=== PATIENT | female | born 1975 | race Caucasian/White ===

== ENCOUNTER 2017-07-01 12:38 | Day surgery (SDC) | payer MEDICAID ==
[~2017-07-01] VITALS: Ht 175.3 cm; Wt 160.9 kg
[~2017-07-01 12:38] MED LIST: NAPR-56 PO
[2017-07-01 12:45] VITALS: BP 143/105
[2017-07-01] MEDS ORDERED: fentaNYL/PF 50MCG/1 ML 2ML syringe ONE (12:48)
[2017-07-01] MEDS ORDERED: LIDOcaine Viscous 15ml cup ONE (12:49)
[2017-07-01] MEDS ORDERED: MIDAZolam 1mg/ml 10ml vial ONE (12:49)
[2017-07-01] MEDS ORDERED: VENL75CA55 PO (12:59)
[2017-07-01] MEDS ORDERED: NAPR-1154 PO (12:59)
[2017-07-01] MEDS ORDERED: HYDR-565 PO (12:59)
[2017-07-01] MEDS ORDERED: CLON-527 PO (12:59)
[2017-07-01 13:35] VITALS: BP 135/75
[2017-07-01 13:45] VITALS: BP 147/84
[2017-07-01 13:55] VITALS: BP 148/75
[2017-07-01 14:05] VITALS: BP 138/94
== END 2017-07-01 14:15 | disposition home or self-care (01) ==
LOC: GI LAB 12:38
PROVIDERS: ATTEND Internal Medicine Gastroenterology
DX: E66.01 Morbid (severe) obesity due to excess calories (principal); K20.9 Esophagitis, unspecified; K29.70 Gastritis, unspecified, without bleeding; Z68.43 Body mass index [BMI] 50.0-59.9, adult; Z79.899 Other long term (current) drug therapy
CPT/HCPCS: 43239; 99152; J2250; J3010; J7030; A4620; G0500

== ENCOUNTER 2018-06-18 15:25 | Emergency (ER) | payer MEDICAID ==
[~2018-06-18] VITALS: Ht 172.7 cm; Wt 169.6 kg
[~2018-06-18 15:25] MED LIST changes: +CLON-527 PO; +HYDR-4353 PO; +NAPR-1154 PO; -NAPR-56 PO; +VENL75CA55 PO
[2018-06-18 16:00] VITALS: BP 155/102
[2018-06-18 17:00] LABS: BASOPHILS # (AUTO) 0.1 X10'3 (0-0.2); BASOPHILS % (AUTO) 0.5 % (0-1); EOSINOPHILS # (AUTO) 0.2 X10'3 (0-0.9); HEMATOCRIT 34.6 % (35.0-45.0); HEMOGLOBIN 10.7 g/dl (12.0-16.0); LYMPHOCYTES # (AUTO) 2.7 X10'3 (1.1-4.8); LYMPHOCYTES % (AUTO) 26.1 % (21-51); MEAN CORPUSCULAR HEMOGLOBIN 21.3 PG (27.0-31.0); MEAN CORPUSCULAR VOLUME 68.8 FL (78-98); MEAN PLATELET VOLUME 8.7 FL (7.4-10.4); MONOCYTES # (AUTO) 0.7 X10'3 (0-0.9); MONOCYTES % (AUTO) 6.9 % (2-12); NEUTROPHILS # (AUTO) 6.7 X10'3 (1.8-7.7); NEUTROPHILS % (AUTO) 64.5 % (42-75); PLATELET COUNT 261 X10'3 (140-440); RED BLOOD COUNT 5.03 X10'6 (4.20-5.60); RED CELL DISTRIBUTION WIDTH 15.6 % (11.5-14.5); WHITE BLOOD COUNT 10.4 X10'3 (4.5-11.0)
[2018-06-18 17:15] LABS: ALANINE AMINOTRANSFERASE 26 U/L (12-78); ALBUMIN 3.6 G/DL (3.4-5.0); ALBUMIN/GLOBULIN RATIO 0.8 (1.1-1.5); ALKALINE PHOSPHATASE 91 IU/L (46-116); ANION GAP 12 (8-16); ASPARTATE AMINO TRANSFERASE 17 U/L (10-37); BILIRUBIN,TOTAL 0.3 MG/DL (0.1-1.0); BLOOD UREA NITROGEN 12 MG/DL (7-18); BUN/CREATININE RATIO 13.5 (6.6-38.0); CALCIUM 8.8 MG/DL (8.5-10.1); CHLORIDE 101 MMOL/L (99-107); CREATININE 0.89 MG/DL (0.40-0.90); GLUCOSE 117 MG/DL (70-104); POTASSIUM 3.9 MMOL/L (3.5-5.1); SODIUM 138 MMOL/L (135-145); TOTAL CARBON DIOXIDE 25.3 MMOL/L (24-32); TOTAL PROTEIN 8.1 G/DL (6.4-8.2); eGFR 70 ML/MIN
[2018-06-18 17:46] LABS: ANISOCYTOSIS 1+; MICROCYTOSIS 1+; PLATELET ESTIMATE NORMAL
[2018-06-18 17:48] LABS: ELLIPTOCYTES FEW; POLYCHROMASIA FEW; SCHISTOCYTES FEW
[2018-06-18 17:49] LABS: TEAR DROP CELLS FEW
[2018-06-18] MEDS ORDERED: BENZ-16 PO (17:59)
[2018-06-18] MEDS ORDERED: GUAI120L55 PO (17:59)
--- NOTE | 2018-06-19 21:32 | NUR ---
PT CALLED AND INSTRUCTED TO HAVE A F/U CXR IN 1 WEEK DUE TO PULMONARY NODULE ON CXR.
[2018-06-22] MEDS ORDERED: OMEP20CA10 PO (05:41)
[2018-06-22] MEDS ORDERED: GABA-532 PO (05:41)
[2018-06-22] MEDS ORDERED: BUSP5TAB3 PO (05:41)
[2018-06-22] MEDS ORDERED: LEVO500T89 PO (05:41)
== END 2018-06-18 18:28 | disposition home or self-care (01) ==
LOC: ER 15:25
DX: J06.9 Acute upper respiratory infection, unspecified (principal); G89.29 Other chronic pain; Z79.899 Other long term (current) drug therapy
CPT/HCPCS: 36415; 71046; 80053; 83605; 85025; 87040; 87502; 87503; 93005; 99284

== ENCOUNTER 2018-06-22 00:49 | Inpatient (IN) | payer MEDICAID | END 2018-06-25 14:10 | disposition home or self-care (01) | LOC: ER 00:49 → ED HOLD 03:39 → PCU 3S 04:30 ==

== ENCOUNTER 2019-01-27 14:46 | Outpatient (CLI) | payer MEDICAID ==
[~2019-01-27 14:46] MED LIST changes: -CLON-527 PO; -HYDR-4353 PO; +LEVO500T89 PO; -NAPR-1154 PO; +OMEP20CA11 PO; +RIVA15TA PO; -VENL75CA55 PO
== END 2019-01-27 23:59 | disposition home or self-care (01) ==
LOC: PRE-OP 14:46 → EDSTATUS 01-29 12:00
PROVIDERS: ATTEND Obstetrics & Gynecology Obstetrics
DX: Z01.818 Encounter for other preprocedural examination (principal); D25.9 Leiomyoma of uterus, unspecified; I25.2 Old myocardial infarction
CPT/HCPCS: 71046; 93005

== ENCOUNTER 2019-02-13 08:33 | Day surgery (SDC) | payer MEDICAID ==
[2019-02-13] VITALS (9 sets, daily range): BP systolic 136–172; BP diastolic 52–99
[~2019-02-13] VITALS: Ht 175.3 cm; Wt 129.0 kg
[2019-02-13] MEDS ORDERED: diphenhydrAMINE 25mg capsule PO PRN (09:25)
[2019-02-13] MEDS ORDERED: normal saline 1,000 ML IV SCH (09:25)
[2019-02-13] MEDS ORDERED: APIX5TAB3 PO (10:24)
[2019-02-13 10:56] LABS: ALBUMIN 3.8 G/DL (3.4-5.0); ANION GAP 9 (8-16); BLOOD UREA NITROGEN 10 MG/DL (7-18); BUN/CREATININE RATIO 12.5 (6.6-38.0); CALCIUM 9.2 MG/DL (8.5-10.1); CHLORIDE 105 MMOL/L (99-107); GLUCOSE 92 MG/DL (70-104); POTASSIUM 4.2 MMOL/L (3.5-5.1); SODIUM 141 MMOL/L (135-145); TOTAL CARBON DIOXIDE 26.7 MMOL/L (24-32); eGFR 78 ML/MIN
[2019-02-13] MEDS ORDERED: midazolam 2 mg/2 ml injection ONE ×4 (10:56→11:43)
[2019-02-13] MEDS ORDERED: LIDOcaine 1% (10mg/ml)w/preservative injection 20ml MDV ONE (10:57)
[2019-02-13] MEDS ORDERED: iohexol 350MG/ML 100ml bottle IV ONE (10:57)
[2019-02-13] MEDS ORDERED: iohexol 350 MG/ML 50ML vial IV ONE (10:57)
[2019-02-13] MEDS ORDERED: fentaNYL/PF 50MCG/1 ML 2ML syringe ONE ×2 (10:57→11:35)
[2019-02-13 11:21] LABS: BASOPHILS # (AUTO) 0.1 X10'3 (0-0.2); BASOPHILS % (AUTO) 0.5 % (0-1); EOSINOPHILS # (AUTO) 0.1 X10'3 (0-0.9); EOSINOPHILS % (AUTO) 1.1 % (0-6); HEMATOCRIT 31.3 % (35.0-45.0); HEMOGLOBIN 9.3 g/dl (12.0-16.0); LYMPHOCYTES % (AUTO) 27.9 % (21-51); MEAN CORPUSCULAR HEMOGLOBIN 19.2 PG (27.0-31.0); MEAN CORPUSCULAR HGB CONC 29.8 g/dL (33.0-36.5); MEAN CORPUSCULAR VOLUME 64.4 FL (78-98); MEAN PLATELET VOLUME 8.4 FL (7.4-10.4); MONOCYTES # (AUTO) 0.9 X10'3 (0-0.9); NEUTROPHILS # (AUTO) 6.7 X10'3 (1.8-7.7); NEUTROPHILS % (AUTO) 62.5 % (42-75); PLATELET COUNT 331 X10'3 (140-440); RED BLOOD COUNT 4.86 X10'6 (4.20-5.60); RED CELL DISTRIBUTION WIDTH 18.1 % (11.5-14.5); WHITE BLOOD COUNT 10.7 X10'3 (4.5-11.0)
[2019-02-13] MEDS ORDERED: nitroGLYCERIN-Tridil 50MG/D5W 250 ML IV ONE (11:30)
[2019-02-13] MEDS ORDERED: heparin 1,000unit/ml 10ml vial 10 ML ONE (11:30)
[2019-02-13] MEDS ORDERED: verapamil 2.5 mg/ml inj IV ONE (11:30)
[2019-02-13] MEDS ORDERED: normal saline 1000ml 1,000 ML IV SCH (12:35)
[2019-02-13 13:06] LABS: MICROCYTOSIS 2+; PLATELET ESTIMATE NORMAL
[2019-02-13 13:07] LABS: ANISOCYTOSIS 2+; HYPOCHROMASIA 1+
[2019-02-13 13:08] LABS: SCHISTOCYTES FEW
[2019-02-14] MEDS ORDERED: furosemide 40mg/4ml inj ONE (11:16)
== END 2019-02-13 15:30 | disposition home or self-care (01) ==
LOC: SSTAY O 08:33
PROVIDERS: ATTEND Internal Medicine Cardiovascular Disease
DX: I25.10 Atherosclerotic heart disease of native coronary artery without angina pectoris (principal); F41.9 Anxiety disorder, unspecified; F32.9 Major depressive disorder, single episode, unspecified; M19.90 Unspecified osteoarthritis, unspecified site; D50.9 Iron deficiency anemia, unspecified; Z87.11 Personal history of peptic ulcer disease; E66.01 Morbid (severe) obesity due to excess calories; Z68.41 Body mass index [BMI] 40.0-44.9, adult; Z98.890 Other specified postprocedural states; Z79.899 Other long term (current) drug therapy; Z86.711 Personal history of pulmonary embolism; Z82.49 Family history of ischemic heart disease and other diseases of the circulatory system
CPT/HCPCS: 36415; 80048; 83735; 85025; 85610; 93005; 93458; 99152; 99153; C1769; C1894; J1644; J2001; J2250; J3010; J7030; Q0163; Q9967; A4620; A5120; J1940; J3490

== ENCOUNTER 2019-02-14 07:58 | Inpatient (IN) | payer MEDICAID ==
[~2019-02-14] VITALS: Ht 167.6 cm; Wt 181.8 kg
[2019-02-14] VITALS (24 sets, daily range): BP systolic 73–114; BP diastolic 41–67
[~2019-02-14 07:58] MED LIST changes: +APIX5TAB3 PO
[2019-02-14] MEDS ORDERED: NORepinephrine bitartrate 8 MG in NS 250 ML BAG (32 mcg/ml) IV ONE (08:00)
[2019-02-14] MEDS ORDERED: atropine 0.1 mg/ml 5ml syringe ONE (08:00)
[2019-02-14] MEDS ORDERED: heparin, porcine-25,000 units/D5-250ml premix IV ONE (08:00)
[2019-02-14] MEDS ORDERED: sodium bicarbonate (8.4%) 1 mEq/ml syringe ONE ×2 (08:00)
[2019-02-14] MEDS ORDERED: heparin 10,000 units/1 ML INJ ONE (08:00)
[2019-02-14] MEDS ORDERED: epiNEPHrine 0.1mg/ml 10ml syringe ONE ×2 (08:00)
[2019-02-14] MEDS ORDERED: calcium chloride 100 MG/1 ML inj IV ONE (08:00)
[2019-02-14] MEDS ORDERED: atropine 0.1mg/ml 10ml syringe ONE (08:00)
[2019-02-14] MEDS ORDERED: nitroGLYCERIN in D5W 50mg/250ml (Tridil) infusion IV ONE (08:00)
[2019-02-14] MEDS ORDERED: etomidate 2mg/ml inj. ONE (08:00)
[2019-02-14] MEDS ORDERED: heparin 10,000 units/1 ML INJ IV ONE ×3 (08:05→13:00)
[2019-02-14] MEDS ORDERED: heparin 10,000 units/1 ML INJ IV PRN ×3 (08:05→13:00)
[2019-02-14] MEDS ORDERED: heparin 25,000 UNIT/250ml bag 250 ML IV SCH ×3 (08:05→12:59)
[2019-02-14] MEDS ORDERED: nitroGLYCERIN-Tridil 50MG/D5W 250 ML IV PRN (08:05)
[2019-02-14] MEDS ORDERED: normal saline 1000ML IV soln IVB ONE (08:20)
[2019-02-14] MEDS ORDERED: iohexol 350MG/ML 100ml bottle IV ONE ×3 (08:27→10:01)
[2019-02-14 08:31] LABS: BASOPHILS # (AUTO) 0.1 X10'3 (0-0.2); BASOPHILS % (AUTO) 0.7 % (0-1); EOSINOPHILS # (AUTO) 0.3 X10'3 (0-0.9); EOSINOPHILS % (AUTO) 2.1 % (0-6); HEMATOCRIT 30.5 % (35.0-45.0); LYMPHOCYTES # (AUTO) 6.5 X10'3 (1.1-4.8); LYMPHOCYTES % (AUTO) 50.5 % (21-51); MEAN CORPUSCULAR HGB CONC 29.5 g/dL (33.0-36.5); MEAN CORPUSCULAR VOLUME 64.6 FL (78-98); MEAN PLATELET VOLUME 7.9 FL (7.4-10.4); MONOCYTES # (AUTO) 1.1 X10'3 (0-0.9); MONOCYTES % (AUTO) 8.3 % (2-12); NEUTROPHILS % (AUTO) 38.4 % (42-75); PLATELET COUNT 334 X10'3 (140-440); RED BLOOD COUNT 4.73 X10'6 (4.20-5.60); RED CELL DISTRIBUTION WIDTH 18.3 % (11.5-14.5)
[2019-02-14 08:41] LABS: ALANINE AMINOTRANSFERASE 25 U/L (12-78); ALBUMIN 3.4 G/DL (3.4-5.0); ALBUMIN/GLOBULIN RATIO 0.8 (1.1-1.5); ALKALINE PHOSPHATASE 73 IU/L (46-116); ANION GAP 11 (8-16); ASPARTATE AMINO TRANSFERASE 12 U/L (10-37); BILIRUBIN,TOTAL 0.4 MG/DL (0.1-1.0); BLOOD UREA NITROGEN 11 MG/DL (7-18); BUN/CREATININE RATIO 10.6 (6.6-38.0); CALCIUM 8.8 MG/DL (8.5-10.1); CHLORIDE 104 MMOL/L (99-107); CREATININE 1.04 MG/DL (0.40-0.90); D-DIMER 1.09 MG/L FEU (0-0.50); GLUCOSE 183 MG/DL (70-104); PARTIAL THROMBOPLASTIN TIME 24 SECONDS (22-32); POTASSIUM 3.5 MMOL/L (3.5-5.1); SODIUM 139 MMOL/L (135-145); TOTAL CARBON DIOXIDE 23.6 MMOL/L (24-32); TOTAL PROTEIN 7.5 G/DL (6.4-8.2); eGFR 58 ML/MIN
[2019-02-14] MEDS ORDERED: ondansetron/PF 4mg/2ml inj IV ONE (09:05)
--- NOTE | 2019-02-14 09:08 | NUR ---
pt is in respiratory distress. now spitting up and O2 sat is dropping out. HR is 131. and O2 sat is on a Non-rebreather. pt is in distress. this started after the CTA of her chest on the way back to the room. MD Wood at bedside. RT at bedside. pt is being suctioned.
--- NOTE | 2019-02-14 09:12 | NUR ---
Etomidate 20mg in at 0911. Succs 100mg in at 0912. intubation started. MD is using the Bougie. pt is a difficult intubation. size 8 tube in.
--- NOTE | 2019-02-14 09:24 | NUR ---
pt has a lot of pulmonary secretions coming up her tube.
[2019-02-14] MEDS ORDERED: propofol 1000mg/100ml bottle 100 ML IV PRN (09:27)
--- NOTE | 2019-02-14 09:39 | NUR ---
[employer] Operator has been at bedside. and states he is going to have the pt go to the Pest Control Operator.
[2019-02-14] MEDS ORDERED: normal saline 1000ml 1,000 ML IV SCH (09:43)
[2019-02-14] MEDS ORDERED: midazolam 100mg in NS 100ml 100 ML IV PRN (09:43)
[2019-02-14] MEDS ORDERED: FENTANYL-0.9 % NACL/PF 100 ML IV PRN (09:43)
[2019-02-14] MEDS ORDERED: potassium Cl 20mEq/100mL bag 100 ML IV PRN ×2 (09:45)
[2019-02-14] MEDS ORDERED: potassium CL 10mEq/100ml bag 100 ML IV PRN ×2 (09:45)
[2019-02-14] MEDS ORDERED: potassium Cl 20 mEq SR tablet PO PRN ×2 (09:45)
[2019-02-14] MEDS ORDERED: ipratropium/albuterol 3ml nebule NEB PRN (09:45)
[2019-02-14] MEDS ORDERED: acetaminophen 325mg tablet PO PRN ×2 (09:45)
[2019-02-14] MEDS ORDERED: ondansetron/PF 4mg/2ml inj IV PRN (09:45)
[2019-02-14] MEDS ORDERED: fentaNYL/PF 50MCG/1 ML 2ML syringe IV PRN (09:45)
[2019-02-14] MEDS ORDERED: midazolam 2 mg/2 ml injection IV ONE (09:45)
--- NOTE | 2019-02-14 09:54 | NUR ---
pt receiving another bolus of 20mg of propofol per MD Pick. Addendum: 02/14/19 at 0956 by RWILCOX pt is still somewhat restless and not tolerating the ventilator. the RT is at bedside hand baging the pt.
[2019-02-14 10:01] LABS: ABG BASE EXCESS -13.6 mmol/L (-2.0-3.0); ABG HCO3 17.6 mmol/L (22.0-26.0); ABG OXYGEN SATURATION 92.7 % (95-98); ABG PCO2 (T) 67.8 mmHg (35.0-45.0); ABG PH (T) 7.032 (7.350-7.450); ABG PO2 (T) 97.8 mmHg (83-108); FCOHb 0.3 % (0.5-1.5); FLOW 15 L/min; FMetHb 0.3 % (0.3-1.12); FO2Hb 92.1 % (94-100); TOTAL HEMOGLOBIN 11.8 G/dl (12.0-16.0)
[2019-02-14] MEDS ORDERED: midazolam 2 mg/2 ml injection ONE (10:01)
[2019-02-14] MEDS ORDERED: verapamil 2.5 mg/ml inj IV ONE (10:01)
[2019-02-14] MEDS ORDERED: nitroGLYCERIN-Tridil 50MG/D5W 250 ML IV ONE (10:01)
[2019-02-14] MEDS ORDERED: LIDOcaine 1% (10mg/ml)w/preservative injection 20ml MDV ONE (10:01)
[2019-02-14] MEDS ORDERED: fentaNYL/PF 50MCG/1 ML 2ML syringe ONE (10:01)
[2019-02-14] MEDS ORDERED: heparin 1,000unit/ml 10ml vial 10 ML ONE (10:01)
--- NOTE | 2019-02-14 10:09 | NUR ---
PT POOPED ON HERSELF WHILE BEING INTUBATED. WE HAVE CLEANED HER UP.
[2019-02-14] MEDS ORDERED: propofol 10mg/ml 20ml vial IV ONE ×2 (10:15)
[2019-02-14] MEDS ORDERED: furosemide 10 MG/1 ML 10ml inj IV ONE (10:15)
[2019-02-14] MEDS ORDERED: sodium bicarbonate (0.9mEq/ml) 44.6 mEq/50ml syringe IV ONE (10:15)
--- NOTE | 2019-02-14 10:23 | NUR ---
PT HAS A PULSE. LOOKS LIKE A SLOW VENTRICULAR RHYTHM. TOLD DRIPS HAD STOPPED DURING CPR. NO MOVEMENT WITH PT NOTED AFTER CPR. BEFORE THE PT CODED THE PT WAS BREATHING OVER THE VENT FASTER THAN WOULD ALLOW HER TO GET GOOD BREATHS. TV WAS 200 AND RR WAS 44. RT WAS AT BEDSIDE MANUALLY BAGGING HER. WE WERE TRYING TO GET HER FULLY SEDATED.
[2019-02-14] MEDS ORDERED: sodium bicarbonate (8.4%) inj. 1 MEQ/ML ML IV ONE (10:45)
[2019-02-14] MEDS: ipratropium/albuterol 3ml nebule NEB SCH ×3 (11:00→22:40)
[2019-02-14] MEDS ORDERED: iohexol 350 MG/1 ML 200ml bottle ONE (11:03)
[2019-02-14] MEDS ORDERED: DOBUTamine-DoBUTrex 500mg/D5W 250 ML IV ONE ×2 (11:19→15:59)
--- NOTE | 2019-02-14 11:39 | NUR ---
SPOKE WITH CICU NURSE ABOUT WHAT HAPPENED WITH PT. SEE CPR SHEET FOR MEDS GIVEN AND TREATMENTS.
[2019-02-14] MEDS ORDERED: heparin 1,000 UNITS/NS 500ml 500 ML ONE (11:54)
--- NOTE | 2019-02-14 12:45 | NUR ---
received from skilled labor via bed, bagged via ETT 100 % O2, monitor and RN in attendance, placed on ventilator, and bedside monitor. EKG shows elevated ST in multiple leads and reciprocal depressions, see EKG for details. 1300 vomited moderate amt of clear greenish stomach contents, suctioned and OG placed to lWS, unable to raise HOB due to bilateral IV in groin, and also due to low BP. MD at bedside and updated on current IV meds and drips for BP support. 1430 family at bedside and updated on patients status by MD. 1750 Dr Godfrey called unit and updated, NTG turned on at 2.5 mcg, BP unable to tolerate same, dropped to SBP high 70's to low 80's with map of 56-58. NTG turned off. Levophed increased
--- NOTE | 2019-02-14 12:50 | NUR ---
RESPIRATORY CALLED TO ER BED 5 AT 0910, PT IN FLASH PULMONARY EDEMA. DR ARAGON HAD A DIFFICULT TIME INTUBATING DUE TO ALL THE FLUID. PT WAS BAGGED AND SUCTIONED BY RT. PT INTUBATED AT 0916 WITH AN 8.0 TUBE, 23 AT THE TEETH. ATTEMPTED TO PLACE PT ON THE VENT BUT UNSUCCESSFUL DUE TO THE PT HAVING PULMONARY EDEMA. PT ALSO BREATHING IN THE 40'S WITH TIDAL VOLUMES IN THE 100-200'S DUE TO DIFFICULT TIME OBTAINING SEDATION FOR THE PT. RT BAGGED THE PT. PT HAD A MOMENT WHERE SHE LOST ALL PULSES AND CPR WAS INITIATED. CPR LASTED ABOUT 10 MINUTES BEFORE ROSC WAS ACHIEVED. PT WAS THEN TRANSPORTED TO BLOWER INSULATOR WHILE BEING BAGGED BY RT. RT HAD TO REMAIN IN BLOWER INSULATOR FROM 1000 TO 1240 DUE TO PTS CRITICAL STATUS. WHILE IN BLOWER INSULATOR PT WAS PLACED ON THE TRANSPORT VENT WITH SETTINGS OF AC PC, Pinsp 30, RR 20, PEEP +5 FIO2 100%. PT REMAINED STABLE FOR THE DURATION. AT ONE POINT THE PTS SATS DROPPED TO [address] BLISS VERBALLY AGREED TO INCREASE THE PEEP FROM +5 TO +8. PT SATS RETURNED THE THE 90'S. AT 1240 THE PT WAS BAGGED AND TRANSPORTED TO ROOM 2014 WHERE SHE WAS THEN PLACED ON THE VENTILATOR.
[2019-02-14 13:11] LABS: ABG BASE EXCESS -9.9 mmol/L (-2.0-3.0); ABG HCO3 16.8 mmol/L (22.0-26.0); ABG OXYGEN SATURATION 94.9 % (95-98); ABG PCO2 (T) 39.6 mmHg (35.0-45.0); ABG PH (T) 7.245 (7.350-7.450); ABG PO2 (T) 83.8 mmHg (83-108); FCOHb 0.3 % (0.5-1.5); FMetHb 0.3 % (0.3-1.12); FO2Hb 94.3 % (94-100); MINUTE VOLUME 20 L/min; PEEP 5 cm H2O; RESPIRATORY RATE 20 b/min; RESPIRATORY RATE (OBSERVED) 39 b/min; TIDAL VOLUME 484 mL
[2019-02-14 13:13] LABS: BASOPHILS % (AUTO) 0.2 % (0-1); EOSINOPHILS % (AUTO) 0.1 % (0-6); HEMATOCRIT 34.4 % (35.0-45.0); HEMOGLOBIN 9.9 g/dl (12.0-16.0); LYMPHOCYTES # (AUTO) 1.9 X10'3 (1.1-4.8); LYMPHOCYTES % (AUTO) 9.2 % (21-51); MEAN CORPUSCULAR HEMOGLOBIN 19.2 PG (27.0-31.0); MEAN CORPUSCULAR HGB CONC 28.7 g/dL (33.0-36.5); MEAN CORPUSCULAR VOLUME 66.8 FL (78-98); MEAN PLATELET VOLUME 7.9 FL (7.4-10.4); MONOCYTES # (AUTO) 1.5 X10'3 (0-0.9); MONOCYTES % (AUTO) 6.9 % (2-12); NEUTROPHILS # (AUTO) 17.6 X10'3 (1.8-7.7); NEUTROPHILS % (AUTO) 83.6 % (42-75); PLATELET COUNT 316 X10'3 (140-440); RED BLOOD COUNT 5.15 X10'6 (4.20-5.60); RED CELL DISTRIBUTION WIDTH 19.1 % (11.5-14.5); WHITE BLOOD COUNT 21.1 X10'3 (4.5-11.0)
[2019-02-14 13:25] LABS: OXYGEN SATURATION (MIXED VEN) 45.8 % (60-80); PO2 MIXED VENOUS (TEMP COR) 30.5 mmHg (35-46)
[2019-02-14 13:28] LABS: PARTIAL THROMBOPLASTIN TIME 27 SECONDS (22-32)
[2019-02-14 13:29] LABS: ALANINE AMINOTRANSFERASE 44 U/L (12-78); ALBUMIN/GLOBULIN RATIO 0.7 (1.1-1.5); ALKALINE PHOSPHATASE 86 IU/L (46-116); ANION GAP 13 (8-16); ASPARTATE AMINO TRANSFERASE 169 U/L (10-37); BILIRUBIN,TOTAL 0.4 MG/DL (0.1-1.0); BLOOD UREA NITROGEN 14 MG/DL (7-18); BUN/CREATININE RATIO 7.9 (6.6-38.0); CALCIUM 8.3 MG/DL (8.5-10.1); CHLORIDE 102 MMOL/L (99-107); CREATININE 1.77 MG/DL (0.40-0.90); GLUCOSE 271 MG/DL (70-104); POTASSIUM 4.3 MMOL/L (3.5-5.1); SODIUM 139 MMOL/L (135-145); TOTAL CARBON DIOXIDE 23.7 MMOL/L (24-32); TOTAL PROTEIN 7.2 G/DL (6.4-8.2); eGFR 31 ML/MIN
[2019-02-14 13:35] LABS: TROPONIN I 7.99 NG/ML (0.0-0.05)
[2019-02-14 14:29] LABS: ANISOCYTOSIS 2+; MICROCYTOSIS 2+; PLATELET ESTIMATE NORMAL; POIKILOCYTOSIS FEW; POLYCHROMASIA FEW
[2019-02-14] MEDS: DOBUTamine-DoBUTrex 500mg/D5W 250 ML IV SCH ×3 (16:10→23:33)
--- NOTE | 2019-02-14 16:15 | NUR ---
Heparin gtt restarted as per orders of Dr Han at 1000 unit/hr no bolus
--- NOTE | 2019-02-14 16:29 | NUR ---
PT INTUBATED IN ER AT 0850. POST INTUBATION, RT'S WERE UNABLE TO VENTILATE PT WITH MECHANICAL VENTILATOR DUE TO FLASH PULMONARY EDEMA AND THE INABILITY TO SEDATE PT ADEQUATELY. PT PLACED ON TRANSPORT FOR [facility]ED[facility], O2 WAS CONTINUOUSLY MONITORED. PT THEN PLACED ON VENT AT 1200 WHEN [facility] PT CURRENTLY STABLE ON VENT. Addendum: 02/14/19 at 1641 by Lurdes López RT Amended: Links added.
[2019-02-14] MEDS: normal saline 1000ml 1,000 ML IV SCH ×2 (16:42→22:11)
--- NOTE | 2019-02-14 18:30 | NUR ---
Patient in room CICU 2013. I have received report from Joseph GALVAN and had the opportunity to ask questions and assume patient care.
[2019-02-14 18:46] LABS: ABG BASE EXCESS -6.4 mmol/L (-2.0-3.0); ABG HCO3 18.5 mmol/L (22.0-26.0); ABG OXYGEN SATURATION 95.4 % (95-98); ABG PCO2 (T) 34.8 mmHg (35.0-45.0); ABG PH (T) 7.344 (7.350-7.450); ABG PO2 (T) 86.8 mmHg (83-108); FCOHb 0.2 % (0.5-1.5); FMetHb 0.3 % (0.3-1.12); FO2Hb 94.9 % (94-100); MINUTE VOLUME 15 L/min; PATIENT TEMPERATURE 37.4; PEEP 5 cm H2O; RESPIRATORY RATE 20 b/min; RESPIRATORY RATE (OBSERVED) 30 b/min; TIDAL VOLUME 350 mL; TOTAL HEMOGLOBIN 10.7 G/dl (12.0-16.0)
[2019-02-14] MEDS: NORepinephrine 8mg/ 250ml NS 250 ML IV PRN (19:06)
[2019-02-14] MEDS ORDERED: docusate sod 100mg capsule PO SCH (20:00)
[2019-02-14] MEDS ORDERED: famotidine/PF 10 mg/ml inj IV SCH (20:00)
[2019-02-14] MEDS ORDERED: albumin (Human) 5% 250ml 250 ML IV ONE ×2 (20:20→21:05)
--- NOTE | 2019-02-14 20:30 | NUR ---
Called Dr Godfrey to update him on patients decreased BP and what current drips were at. New orders received. Instructed to also call intensivists with patients condition. Updated Rober Vazquez RELATIONS DIRECTOR at this time. New orders received. Will continue to monitor patient closely. 2039- Dr Godfrey called back with further questions regarding patient. No new additional orders.
[2019-02-14] MEDS ORDERED: sennosides/docusate sodium tablet PO SCH (21:00)
[2019-02-14] MEDS ORDERED: acetaminophen 325mg/10.15ml oral unit dose solution PO PRN ×2 (22:19)
--- NOTE | 2019-02-14 22:30 | NUR ---
Spoke with Dr Godfrey, updated on patients status.
[2019-02-14 22:58] LABS: ALANINE AMINOTRANSFERASE 68 U/L (12-78); ALBUMIN/GLOBULIN RATIO 0.8 (1.1-1.5); ALKALINE PHOSPHATASE 67 IU/L (46-116); ANION GAP 18 (8-16); ASPARTATE AMINO TRANSFERASE 496 U/L (10-37); BILIRUBIN,TOTAL 0.4 MG/DL (0.1-1.0); BLOOD UREA NITROGEN 17 MG/DL (7-18); BUN/CREATININE RATIO 7.2 (6.6-38.0); CALCIUM 7.9 MG/DL (8.5-10.1); CHLORIDE 104 MMOL/L (99-107); CREATININE 2.35 MG/DL (0.40-0.90); GLUCOSE 215 MG/DL (70-104); POTASSIUM 4.8 MMOL/L (3.5-5.1); SODIUM 138 MMOL/L (135-145); TOTAL CARBON DIOXIDE 15.9 MMOL/L (24-32); TOTAL PROTEIN 6.8 G/DL (6.4-8.2); eGFR 23 ML/MIN
[2019-02-14 23:01] LABS: BASOPHILS % (AUTO) 0.1 % (0-1); EOSINOPHILS % (AUTO) 0 % (0-6); HEMATOCRIT 30.8 % (35.0-45.0); HEMOGLOBIN 8.9 g/dl (12.0-16.0); LYMPHOCYTES # (AUTO) 1.5 X10'3 (1.1-4.8); LYMPHOCYTES % (AUTO) 6.2 % (21-51); MEAN CORPUSCULAR HEMOGLOBIN 18.8 PG (27.0-31.0); MEAN CORPUSCULAR HGB CONC 28.9 g/dL (33.0-36.5); MEAN CORPUSCULAR VOLUME 65.2 FL (78-98); MEAN PLATELET VOLUME 8.9 FL (7.4-10.4); MONOCYTES # (AUTO) 1.3 X10'3 (0-0.9); MONOCYTES % (AUTO) 5.3 % (2-12); NEUTROPHILS # (AUTO) 21.5 X10'3 (1.8-7.7); NEUTROPHILS % (AUTO) 88.4 % (42-75); PLATELET COUNT 287 X10'3 (140-440); RED BLOOD COUNT 4.72 X10'6 (4.20-5.60); RED CELL DISTRIBUTION WIDTH 18.7 % (11.5-14.5); WHITE BLOOD COUNT 24.3 X10'3 (4.5-11.0)
[2019-02-14 23:56] LABS: ANISOCYTOSIS 2+; HYPOCHROMASIA 2+; MICROCYTOSIS 2+; PLATELET ESTIMATE NORMAL
[2019-02-15] MEDS: NORepinephrine 8mg/ 250ml NS 250 ML IV PRN (00:21)
[2019-02-15 01:00] VITALS: BP 77/45
--- NOTE | 2019-02-15 01:20 | NUR ---
Called Octaviano Green to update on patients decreasing BP. No new orders received.
--- NOTE | 2019-02-15 01:25 | NUR ---
Spoke with Dr Godfrey , updated him regarding patients decreasing BP, CI, CO and heart rate and increasing need for levo. New orders received.
[2019-02-15] MEDS ORDERED: epiNEPHrine inj 5 MG, calcium chloride inj. 1,000 MG in normal saline 250ml IV soln 250 ML IV PRN (01:28)
[2019-02-15] MEDS ORDERED: hydrocortisone sod succ/PF 100mg/2ml inj. IV ONE (01:30)
[2019-02-15 02:00] VITALS: BP 77/44
--- NOTE | 2019-02-15 02:15 | NUR ---
Patient had changes in ECG, Rate was slowing and widening. Ekg done. Right after EKG patients heart rate dropped and BP dropped. Noemi morataya called. Addendum: 02/15/19 at 0407 by Pamela Joseph RN Patient coded for over 20 minutes, Dr Godfrey at bedside, called at [address] Godfrey. See noemi Morataya Notes
[2019-02-15] MEDS ORDERED: phenylephrine inj 20 MG in normal saline 250ml IV soln 250 ML IV PRN (02:25)
[2019-02-15] MEDS ORDERED: sodium bicarbonate (8.4%) 1 mEq/ml syringe ONE ×2 (02:34→02:35)
[2019-02-15 02:35] LABS: ABG BASE EXCESS -20.8 mmol/L (-2.0-3.0); ABG HCO3 11.2 mmol/L (22.0-26.0); ABG OXYGEN SATURATION 60.6 % (95-98); ABG PCO2 (T) 60.5 mmHg (35.0-45.0); ABG PH (T) 6.896 (7.350-7.450); ABG PO2 (T) 57.5 mmHg (83-108); FCOHb 0.3 % (0.5-1.5); FMetHb 0.4 % (0.3-1.12); FO2Hb 60.2 % (94-100); MINUTE VOLUME 9 L/min; PATIENT TEMPERATURE 38.6; PEEP 5 cm H2O; RESPIRATORY RATE 20 b/min; RESPIRATORY RATE (OBSERVED) 20 b/min; TIDAL VOLUME 350 mL; TOTAL HEMOGLOBIN 9.4 G/dl (12.0-16.0)
--- NOTE | 2019-02-15 02:45 | NUR ---
Multiple attempts made to contact the family, Messages left and attempted to called again. Orlando and Ame called to pick the body. Called Joann (daughter), Adilson (fiance), Janelle (sister), Tyrone (brother)
--- NOTE | 2019-02-15 03:08 | NUR ---
multiple calls placed to daughter, brother, stepsister and partner. Messages left for them to contact the CICU regarding pt.
--- NOTE | 2019-02-15 04:00 | NUR ---
Called Elizabeth to machine operator picker. Awaiting transport.
--- NOTE | 2019-02-15 05:19 | NUR ---
Elizabeth (Ann) here to continuous pickling line pickler. Sent all family contact info with mortuary. No patient belongings at bedside.
[2019-02-15] MEDS ORDERED: mineral oil/petrolatum ophthal oint EACHEYE SCH (14:00)
[2019-02-19 10:55] LABS: ALLEN'S TEST POSITIVE
== END 2019-02-15 02:40 | disposition expired | DRG 190 ==
LOC: ER 07:58 → CICU 2S 11:54
PROVIDERS: ADMIT Internal Medicine Critical Care Medicine; ATTEND Internal Medicine Critical Care Medicine
PROC: 0BH17EZ Insertion of Endotracheal Airway into Trachea, Via Natural or Artificial Opening (ICD-10-PCS; principal; 2019-02-14)
PROC: 5A1935Z Respiratory Ventilation, Less than 24 Consecutive Hours (ICD-10-PCS; 2019-02-14)
PROC: 5A12012 Performance of Cardiac Output, Single, Manual (ICD-10-PCS; 2019-02-14)
PROC: 4A023N7 Measurement of Cardiac Sampling and Pressure, Left Heart, Percutaneous Approach (ICD-10-PCS; 2019-02-14)
PROC: B2111ZZ Fluoroscopy of Multiple Coronary Arteries using Low Osmolar Contrast (ICD-10-PCS; 2019-02-14)
PROC: B2151ZZ Fluoroscopy of Left Heart using Low Osmolar Contrast (ICD-10-PCS; 2019-02-14)
PROC: B32T1ZZ Computerized Tomography (CT Scan) of Left Pulmonary Artery using Low Osmolar Contrast (ICD-10-PCS; 2019-02-14)
PROC: B3201ZZ Computerized Tomography (CT Scan) of Thoracic Aorta using Low Osmolar Contrast (ICD-10-PCS; 2019-02-14)
PROC: B32S1ZZ Computerized Tomography (CT Scan) of Right Pulmonary Artery using Low Osmolar Contrast (ICD-10-PCS; 2019-02-14)
PROC: 06HY33Z Insertion of Infusion Device into Lower Vein, Percutaneous Approach (ICD-10-PCS; 2019-02-14)
PROC: 04HY32Z Insertion of Monitoring Device into Lower Artery, Percutaneous Approach (ICD-10-PCS; 2019-02-14)
PROC: 5A12012 Performance of Cardiac Output, Single, Manual (ICD-10-PCS; 2019-02-15)
DX: I21.3 ST elevation (STEMI) myocardial infarction of unspecified site (principal); R57.0 Cardiogenic shock; J96.00 Acute respiratory failure, unspecified whether with hypoxia or hypercapnia; J81.0 Acute pulmonary edema; N17.9 Acute kidney failure, unspecified; E66.01 Morbid (severe) obesity due to excess calories; I51.81 Takotsubo syndrome; I42.8 Other cardiomyopathies; R29.898 Other symptoms and signs involving the musculoskeletal system; I20.1 Angina pectoris with documented spasm; G89.4 Chronic pain syndrome; F41.9 Anxiety disorder, unspecified; M54.9 Dorsalgia, unspecified; Z68.44 Body mass index [BMI] 60.0-69.9, adult; Z86.711 Personal history of pulmonary embolism; Z79.899 Other long term (current) drug therapy
CPT/HCPCS: 31500; 36415; 36600; 71045; 71275; 80053; 82330; 82803; 82810; 82948; 83605; 83880; 84484; 85018; 85025; 85379; 85610; 85730; 92950; 93005; 93458; 94002; 94640; 94760; 96365; 96375; 96376; 99152; 99153; 99291; 99292; A6258; C1769; G0378; J0171; J0461; J1250; J1644; J1720; J2001; J2250; J2370; J2405; J2704; J3010; J3490; J7030; J7050; P9045; Q9967